=== PATIENT | female | born 1990 | race American Indian/Alaskan Native ===

== ENCOUNTER 2018-01-07 12:04 | Emergency (ER) | payer SELFPAY ==
[2018-01-07 12:13] VITALS: BP 153/95
[2018-01-07 12:36] LABS: Bacteria,Urine 1+ /HPF (Negative); Bilirubin,Urine NEG (Negative); Blood,Urine NEG (Negative); Color,Urine Yellow (Yellow); Mucus,Urine FEW /HPF; Protein,Urine <15 mg/dL mg/dL (Negative); Urobilinogen,Urine < 2.0 mg/dL (<2.0)
[2018-01-07 12:37] LABS: HCG Qualitative,Urine Negative (Negative)
== END 2018-01-07 13:00 | disposition left against medical advice (07) ==
LOC: ED 12:04
DX: R10.9 Unspecified abdominal pain (principal); Z53.21 Procedure and treatment not carried out due to patient leaving prior to being seen by health care provider
CPT/HCPCS: 81001; 81025

== ENCOUNTER 2018-01-12 12:18 | Emergency (ER) | payer SELFPAY ==
[2018-01-12 13:13] LABS: Bilirubin,Urine NEG (Negative); Blood,Urine NEG (Negative); Color,Urine Yellow (Yellow); Mucus,Urine FEW /HPF; Protein,Urine <15 mg/dL mg/dL (Negative); Urobilinogen,Urine < 2.0 mg/dL (<2.0)
[2018-01-12 13:14] LABS: HCG Qualitative,Urine Negative (Negative)
--- NOTE | 2018-01-12 14:33 | Emergency Department Report ---
ED Abdominal Pain HPI - General Chief Complaint: Abdominal Pain Stated Complaint: ABD PAIN/DISCHARGE Time Seen by Provider: 01/12/18 13:59 Source: patient Mode of arrival: Ambulatory Limitations: No Limitations - History of Present Illness Initial Comments: This is a 27-year-old female that presents with abdominal pain for one month. Patient states pain is generalized and she is also having some vaginal discharge. Patient states she was seen. My fear with similar symptoms a few weeks ago and treated for STDs with shot of antibiotics or medication and discharged home with Flagyl. She states she completed all medication and continues to have some discharge without an odor. Patient does admits to frequency and urgency without dysuria. Last menstrual period is 12/14/2017, A1. Patient denies nausea or vomiting, vaginal bleeding, chest pain fever. MD Complaint: abdominal pain Onset/Timin -: month(s) Location: diffuse Radiation: none Migration to: no migration Severity: moderate Severity scale (0 -10): 6 Quality: cramping Consistency: intermittent Improves With: nothing Worsens With: nothing Associated Symptoms: denies other symptoms Treatments Prior to Arrival: NSAIDs - Related Data LMP Date: 12/14/17 Previous Rx's Medication Instructions Recorded Last Taken Type Amoxicillin [Trimox CAP] 500 mg PO Q8H #30 capsule 02/15/16 Unknown Rx Cetirizine HCl [ZyrTEC] 10 mg PO DAILY #20 capsule 02/15/16 Unknown Rx predniSONE [Deltasone] 20 mg PO QDAY #5 tab 02/15/16 Unknown Rx Allergies Allergy/AdvReac Type Severity Reaction Status Date / Time No Known Allergies Allergy Verified 02/14/16 22:24 ED Review of Systems ROS: Stated complaint: ABD PAIN/DISCHARGE Other details as noted in HPI Constitutional: denies: chills, fever Respiratory: denies: cough, shortness of breath, wheezing Cardiovascular: denies: chest pain, palpitations Gastrointestinal: abdominal pain (generalized abdominal pain). denies: nausea, diarrhea Genitourinary: discharge. denies: urgency, dysuria Musculoskeletal: denies: back pain, joint swelling, arthralgia Skin: denies: rash, lesions Neurological: denies: headache, weakness, paresthesias Psychiatric: denies: anxiety, depression ED Past Medical Hx - Past Medical History Previous Medical History?: No - Surgical History Past Surgical History?: Yes Additional Surgical History: abd cyst removal and c section - Social History Smoking Status: Never Smoker Substance Use Type: None - Medications Home Medications: Home Medications Medication Instructions Recorded Confirmed Last Taken Type Amoxicillin [Trimox CAP] 500 mg PO Q8H #30 capsule 02/15/16 Unknown Rx Cetirizine HCl [ZyrTEC] 10 mg PO DAILY #20 capsule 02/15/16 Unknown Rx predniSONE [Deltasone] 20 mg PO QDAY #5 tab 02/15/16 Unknown Rx ED Physical Exam - General Limitations: No Limitations General appearance: alert, in no apparent distress, obese - Respiratory Respiratory exam: Present: normal lung sounds bilaterally. Absent: respiratory distress - Cardiovascular Cardiovascular Exam: Present: regular rate, normal rhythm. Absent: systolic murmur, diastolic murmur, rubs, gallop - GI/Abdominal GI/Abdominal exam: Present: soft, tenderness (left lower quadrant tenderness), normal bowel sounds. Absent: distended, guarding, rebound, rigid, organomegaly , mass - Neurological Exam Neurological exam: Present: alert, oriented X3 - Psychiatric Psychiatric exam: Present: normal affect, normal mood - Skin Skin exam: Present: warm, dry, intact, normal color. Absent: rash ED Course Vital Signs 01/12/18 01/12/18 12:41 18:27 Temperature 99.1 F Pulse Rate 89 86 Respiratory 18 16 Rate Blood Pressure 134/94 Blood Pressure 131/90 [Left] O2 Sat by Pulse 100 100 Oximetry ED Medical Decision Making - Radiology Data Radiology results: report reviewed, image reviewed EXAM: US ABDOMEN COMPLETE HISTORY: left lower quadrant tenderness TECHNIQUE: Standard ultrasound of the abdomen PRIORS: None. FINDINGS: Examination of the gallbladder demonstrates an echogenic non mobile non shadowing 6 mm focus in the gallbladder. This may represent an adherent gallstone or small polyp. Otherwise, there is no evidence for distention, wall thickening, or pericholecystic fluid. No sonographic Johnson's sign is elicited. Common bile duct is normal in diameter measuring 2.1 mm. The liver is normal and homogeneous in echogenicity without focal abnormality or intrahepatic biliary dilatation. The pancreas is normal in thickness without focal abnormality or pancreatic duct dilatation. The spleen is normal in length measuring 9.2 cm and homogeneous in echogenicity without focal abnormalities. Examination of the kidneys demonstrates both to be normal in size and have normal cortical echogenicity and thickness. The right and left kidneys measure 10.6 cm and 10.6 cm in craniocaudal length, respectively. No evidence for calculi, hydronephrosis, or solid mass is seen in either kidney. The inferior vena cava and aorta are normal. Maximum diameter of the aorta is 2.0 cm in its proximal portion. Examination in the left lower quadrant in the area of patient's pain shows no underlying abnormality IMPRESSION: 1. Echogenic non mobile non shadowing focus in the gallbladder which may represent an adherent gallstone or small polyp 2. Otherwise, negative exam. No abnormality in the left lower quadrant in the area of the patient's pain. - Medical Decision Making Patient examined by myself in fast track. Vitals are normal and patient is in no acute distress. Obtained labs and ultrasound of abdomen. Patient informed of results. Incidental findings of possible small gallstone. Plan discussed with patient to discharge home and treat outpatient. Patient discharged home in stable condition. Follow up with [facility]CP at [facility] 2-3 days. Critical care attestation.: If time is entered above; I have spent that time in minutes in the direct care of this critically ill patient, excluding procedure time. ED Disposition Clinical Impression: Vaginal discharge, Urinary tract infection symptoms Abdominal pain Qualifiers: Abdominal location: left lower quadrant Qualified Code(s): R10.32 - Left lower quadrant pain Disposition: TO HOME OR SELFCARE Is pt being admited?: No Does the pt Need Aspirin: No Condition: Stable Instructions: Abdominal Pain (ED) Additional Instructions: Follow up with primary care provider in 1 week for further evaluation if symptoms are not improving. Referrals: [facility] [place][Note 3] [Outside] - 3-5 Days [facility] [Outside] - 3-5 Days Forms: Work/School Release Form(ED) Time of Disposition: 18:18 Print Language: CHADIAN
--- NOTE | 2018-01-12 17:58 | Ultrasound Report ---
FINAL REPORT EXAM: US ABDOMEN COMPLETE HISTORY: left lower quadrant tenderness TECHNIQUE: Standard ultrasound of the abdomen PRIORS: None. FINDINGS: Examination of the gallbladder demonstrates an echogenic non mobile non shadowing 6 mm focus in the gallbladder. This may represent an adherent gallstone or small polyp. Otherwise, there is no evidence for distention, wall thickening, or pericholecystic fluid. No sonographic Johnson's sign is elicited. Common bile duct is normal in diameter measuring 2.1 mm. The liver is normal and homogeneous in echogenicity without focal abnormality or intrahepatic biliary dilatation. The pancreas is normal in thickness without focal abnormality or pancreatic duct dilatation. The spleen is normal in length measuring 9.2 cm and homogeneous in echogenicity without focal abnormalities. Examination of the kidneys demonstrates both to be normal in size and have normal cortical echogenicity and thickness. The right and left kidneys measure 10.6 cm and 10.6 cm in craniocaudal length, respectively. No evidence for calculi, hydronephrosis, or solid mass is seen in either kidney. The inferior vena cava and aorta are normal. Maximum diameter of the aorta is 2.0 cm in its proximal portion. Examination in the left lower quadrant in the area of patient's pain shows no underlying abnormality IMPRESSION: 1. Echogenic non mobile non shadowing focus in the gallbladder which may represent an adherent gallstone or small polyp 2. Otherwise, negative exam. No abnormality in the left lower quadrant in the area of the patient's pain.
[2018-01-12 18:28] VITALS: BP 131/90
== END 2018-01-12 18:26 | disposition home or self-care (01) ==
LOC: ED 12:18
DX: R10.32 Left lower quadrant pain (principal); N89.8 Other specified noninflammatory disorders of vagina; R35.0 Frequency of micturition; R39.15 Urgency of urination
CPT/HCPCS: 76700; 81001; 81025

== ENCOUNTER 2019-04-07 09:33 | Emergency (ER) | payer SELFPAY ==
[2019-04-07 09:40] VITALS: BP 121/79
--- NOTE | 2019-04-07 10:26 | Emergency Department Report ---
ED Rash HPI - HPI Chief Complaint: Skin Rash Stated Complaint: ALLERGIC REACTION Time Seen by Provider: 04/07/19 10:15 Duration: 1.5 weeks Location: Other (to the chest in between and underneath her breast some rash to the axillary region. Mild pruritus noted no known irritants) Rash Symptoms: Yes Itching, No Facial Swelling, No Tongue/Oral Swelling, No Breathing Difficulties, No Choking Sensation, No Wheezing/Dyspnea, No Peeling, No Blistering, No Fever, No Lightheaded Severity: mild Other History: 28-year-old [place] female since emergency department complaining of a mild pruritic rash to her arms and her breast region is begin to develop a mild odor. No pain involved. No fever, chills, sweats no chest pain no joint pain or shortness of breath no coryza is associated. She tried no medications [id number] N should the ED for further evaluation and treatment options ED Review of Systems ROS: Stated complaint: ALLERGIC REACTION Other details as noted in HPI Comment: All other systems reviewed and negative ED Past Medical Hx - Past Medical History Previous Medical History?: No - Surgical History Past Surgical History?: Yes Additional Surgical History: C section - Social History Smoking Status: Never Smoker Substance Use Type: None - Medications Home Medications: Home Medications Medication Instructions Recorded Confirmed Last Taken Type Amoxicillin [Trimox CAP] 500 mg PO Q8H #30 capsule 02/15/16 Unknown Rx Cetirizine HCl [ZyrTEC] 10 mg PO DAILY #20 capsule 02/15/16 Unknown Rx predniSONE [Deltasone] 20 mg PO QDAY #5 tab 02/15/16 Unknown Rx Nystatin Cream [Mycostatin Cream] 1 applic TP BID #60 tube 04/07/19 Unknown Rx Rash Exam - Exam General: Vital signs noted. No distress. Alert and acting appropriately. HEENT: No Periorbital Edema, No Conjuctival Injection, No Chemosis, No Perioral Edema, No Tongue Edema, No Uvular Edema, No Compromised Airway, No Drooling Lungs: Yes Good Air Exchange (Normal Breath Sounds), No Wheezes, No Ronchi, No Stridor, No Cough, No Labored Respirations, No Retractions, No Use of Accessory Muscles, No Other Abnormal Lung Sounds Heart: Yes Regular, No Murmur Front/Back of Body, Lg (Color): 1 - Rash to this region 2 - Rash to this region 3 - Rash to the region Skin: Yes Other (hyperpigmented take rash between the chest and underneath the breast indicative of a tinea. Minimal excoriation is noted. No cellulitis no lymphangitis no pustules. No lymphadenopathy) Other: Positive: Abdomen Normal, Neurologic Normal, Musculoskeletal Normal ED Course Vital Signs 04/07/19 09:39 Temperature 98.3 F Pulse Rate 84 Respiratory 16 Rate Blood Pressure 121/79 O2 Sat by Pulse 98 Oximetry ED Medical Decision Making - Medical Decision Making 28-year-old -[place]og[place] female since emergency Department with a nonemergent rash to the chest suggestive of a tinea please rash. No allergic reaction no cellulitis no infectious processes at present. There is range of motion with no limitations DL knowledge about this is a new Critical care attestation.: If time is entered above; I have spent that time in minutes in the direct care of this critically ill patient, excluding procedure time. ED Disposition Clinical Impression: Fungal rash of torso Disposition: MED SCREENING EXAM-LEFT Is pt being admited?: No Does the pt Need Aspirin: No Condition: Stable Instructions: Acute Rash (ED) Prescriptions: Nystatin Cream [Mycostatin Cream] 1 applic TP BID #60 tube Referrals: [facility] [Provider Group] - 3-5 Days
== END 2019-04-07 11:00 | disposition left against medical advice (07) ==
LOC: ED 09:33
DX: B36.9 Superficial mycosis, unspecified (principal); Z79.899 Other long term (current) drug therapy

== ENCOUNTER 2020-04-11 14:31 | Outpatient (CLI) | payer OTHER ==
--- NOTE | 2020-04-11 16:51 | Mammography Report ---
DIGITAL DIAGNOSTIC MAMMOGRAM WITH CAD CONVENTIONAL, 04/11/2020 CLINICAL INFORMATION / INDICATION: LT BREAST LUMP TECHNIQUE: Digital bilateral mammographic imaging was performed. This examination was interpreted with the benefit of Computer-aided Detection analysis. COMPARISON: None available. FINDINGS: Breast Density: There are scattered areas of fibroglandular density. No dominant mass, suspicious calcifications or architectural distortion in either breast. IMPRESSION: No mammographic evidence of malignancy. Left breast ultrasound focusing on the area of cl inical interest is recommended for complete evaluation. Follow up recommendation: Ultrasound BI-RADS Category 0: Incomplete. Needs additional imaging evaluation and/or prior mammograms for carlos león. A "normal" or negative report should not discourage follow up or biopsy of a clinically significant f inding. A written summary of these findings will be mailed to the patient. The patient will be entered into a mammography reporting system which will generate a reminder letter for the patient's next appointmen t at the appropriate interval. According to the [employer], yearly mammograms are recommended starting at age 40 and continuing as long as a woman is in good health. Breast MRI is recommended for women with an jackelyn roximately 20-25% or greater lifetime risk of breast cancer, including women with a strong family his tory of breast or ovarian cancer and women who have been treated for Hodgkin's disease. Signer Name: Rakesh Elam MD Signed: 04/11/2020 4:46 PM Workstation Name: [id number]
--- NOTE | 2020-04-12 07:40 | Ultrasound Report ---
ULTRASOUND BREAST LEFT LIMITED, 04/11/2020 CLINICAL INFORMATION / INDICATION: LUMP IN LEFT BREAST. TECHNIQUE: Targeted ultrasound evaluation was performed of the area of interest. COMPARISON: Bilateral mammogram today FINDINGS: Area of reported concern is roughly in the upper outer quadrant. In the 12:00 position a small simple cyst is seen measuring 6 mm. In the 4:00 position centrally a 4 mm simple cyst is noted. No signific ant lesions are seen. IMPRESSION: No sonographic evidence of malignancy. Follow up recommendation: Clinical follow-up BI-RADS Category 2: Benign. A normal or "negative" report should not preclude biopsy or follow-up of a clinically suspicious find ing. Signer Name: Sunny Craig MD Signed: 04/12/2020 7:35 AM Workstation Name: [id number]
== END 2020-04-11 14:32 | disposition home or self-care (01) ==
LOC: MAMMO 14:31
PROVIDERS: ATTEND Specialist
DX: N60.02 Solitary cyst of left breast (principal); N63.20 Unspecified lump in the left breast, unspecified quadrant
CPT/HCPCS: 77066